=== PATIENT | female | born 1970 | race Caucasian/White ===

== ENCOUNTER 2020-01-26 22:18 | Emergency (ER) | payer OTHER ==
[~2020-01-26] VITALS: Ht 170.2 cm; Wt 64.6 kg
--- NOTE | 2020-01-26 22:55 | NUR ---
PT TO ED WITH FLU DX YESTERDAY. REPORTS CONTINUED SYMPTOMS AND STATES "I NEED SUPPORTIVE CARE BECAUSE IM DEHYDRATED". PT CONENCTED TO MONITORING. CALL LIGHT WITHIN REACH.
[2020-01-26] MEDS ORDERED: CYCLOBENZAPRINE 10 MG TABLET PO STA (22:57)
[2020-01-26] MEDS ORDERED: SODIUM CHLORIDE 0.9% 1,000ML IVBOLUS ONE (23:00)
[2020-01-26] MEDS ORDERED: CYCLOBENZAPRINE 10 MG TABLET ONE (23:00)
[2020-01-26] MEDS ORDERED: KETOROLAC 30 MG/1 ML ONE (23:00)
[2020-01-26] MEDS ORDERED: SODIUM CHLORIDE FLUSH 10ML SYR IVF ONE (23:00)
[2020-01-26] MEDS ORDERED: KETOROLAC 30 MG/1 ML IVPush ONE (23:00)
[2020-01-26 23:14] VITALS: BP 113/71
== END 2020-01-26 23:58 | disposition home or self-care (01) ==
LOC: ED 23:00
DX: J10.1 Influenza due to other identified influenza virus with other respiratory manifestations (principal); F17.210 Nicotine dependence, cigarettes, uncomplicated; E86.0 Dehydration
CPT/HCPCS: 96361; 96374; 99283; J1885; J7030